=== PATIENT | female | born 1980 | race Two or more races ===

== ENCOUNTER 2017-06-10 00:54 | Emergency (ER) | payer OTHER ==
[2017-06-10 01:02] VITALS: RESP 18
[2017-06-10] MEDS ORDERED: NS 1,000 ML IV ONE (01:28)
[2017-06-10] MEDS ORDERED: ONDANSETRON 4 MG/2 ML VIAL IVP ONE (01:28)
[2017-06-10] MEDS ORDERED: FAMOTIDINE 20 MG/NACL 50 ML IV ONE (01:58)
--- NOTE | 2017-06-10 02:01 | EDPHY ---
H & P Stated Complaint: ABD PAIN, EPIGASTRIC PAIN, HX OF GASTRITIS Time Seen by Provider: 06/10/17 01:34 HPI/ROS: HPI The patient presents with abdominal pain which is epigastric, burning in nature , has been present for the last 1.5 days and is getting progressively worse. It now is radiating throughout her abdomen. It is associated with nausea and vomiting. She tried drinking water earlier today and was unable to. She is not sure what caused her pain, however her PPI prescription was changed to a different color pill and she was concerned that this is what caused her pain to start. She does not have any diarrhea, fever, dark or bloody stools. REVIEW OF SYSTEMS Constitutional: No fever, no chills. Eyes: No discharge. ENT: No sore throat. Cardiovascular: No chest pain, no palpitations. Respiratory: No cough, no shortness of breath. Gastrointestinal: Positive for abdominal pain, no vomiting. Genitourinary: No hematuria. Musculoskeletal: No back pain. Skin: No rashes. Neurological: No headache. PMHx: History of gastritis, followed at [facility] Soc Hx: Housed, no alcohol PHYSICAL General Appearance: Alert, no distress Eyes: Pupils equal and round no pallor or injection ENT, Mouth: Mucous membranes moist Respiratory: There are no retractions, lungs are clear to auscultation Cardiovascular: Regular rate and rhythm Gastrointestinal: Abdomen is soft and non-tender, no masses, bowel sounds normal Neurological: A&O, moves all extremities Skin: Warm and dry, no rashes Musculoskeletal: Neck is supple non tender Extremities: symmetrical, full range of motion Psychiatric: Patient is oriented X 3, there is no agitation Source: Patient Exam Limitations: No limitations - Personal History LMP (Females 10-55): 8-14 Days Ago Current Tetanus/Diphtheria Vaccine: Yes Current Tetanus Diphtheria and Acellular Pertussis (TDAP): Yes - Medical/Surgical History Hx Asthma: No Hx Chronic Respiratory Disease: No Hx Diabetes: No Hx Cardiac Disease: No Hx Renal Disease: No Hx Cirrhosis: No Hx Alcoholism: No Hx HIV/AIDS: No Hx Splenectomy or Spleen Trauma: No Other PMH: GASTRITIS, - Social History Smoking Status: Never smoked Constitutional: Initial Vital Signs Temperature (C) 37.1 C 06/10/17 00:57 Heart Rate 84 06/10/17 00:57 Respiratory Rate 18 06/10/17 00:57 Blood Pressure 112/87 H 06/10/17 00:57 O2 Sat (%) 100 06/10/17 00:57 O2 Delivery Mode Room Air Allergies/Adverse Reactions: No Known Allergies Allergy (Unverified 06/10/17 01:01) Home Medications: Medication Instructions Recorded Pantoprazole Sodium 40 mg PO 06/10/17 Medical Decision Making Differential Diagnosis: 36-year-old female with history of gastritis on PPI presents with 1.5 days of progressive epigastric abdominal pain, burning nature, now associated with nausea and vomiting. Differential diagnosis includes gastritis, pancreatitis, biliary colic. Plan for IV fluids, Zofran, famotidine, basic labs. Labs were checked and were unremarkable. Initial medications help somewhat, however the patient had ongoing vomiting. She was given a 2nd round of medications with complete resolution in her symptoms. I suspect she is suffering from gastritis. I have discussed this with her. She is feeling well enough to go home and will be discharged. - Data Points Laboratory Results: Laboratory Results 06/10/17 01:40 06/10/17 01:40 Medications Given: Discontinued Medications Sodium Chloride (Ns) 1,000 mls @ 0 mls/hr IV ONCE ONE PRN Reason: Wide Open Stop: 06/10/17 01:29 Last Admin: 06/10/17 01:39 Dose: 1,000 mls Famotidine/Sodium Chloride (Pepcid 20 Mg (Premix)) 50 mls @ 200 mls/hr IV EDNOW ONE Stop: 06/10/17 02:12 Last Admin: 06/10/17 02:37 Dose: 50 mls Ketorolac Tromethamine (Toradol) 15 mg IVP EDNOW ONE Stop: 06/10/17 03:10 Last Admin: 06/10/17 03:23 Dose: 15 mg Metoclopramide HCl (Reglan Injection) 10 mg IVP EDNOW ONE Stop: 06/10/17 03:10 Last Admin: 06/10/17 03:26 Dose: Not Given Ondansetron HCl (Zofran) 4 mg IVP EDNOW ONE Stop: 06/10/17 01:29 Last Admin: 06/10/17 01:39 Dose: 4 mg Ondansetron HCl (Zofran Odt 4 Mg Prepack#2) 1 btl TAKEHOME EDNOW ONE Stop: 06/10/17 04:36 Last Admin: 06/10/17 04:44 Dose: 1 btl Promethazine HCl (Phenergan) 12.5 mg IVP ONCE ONE Stop: 06/10/17 03:21 Last Admin: 06/10/17 03:23 Dose: 12.5 mg Departure - Departure Disposition: Home, Routine, Self-Care Clinical Impression: Epigastric abdominal pain, Gastritis Condition: Good Instructions: Gastritis (ED), Diet for Stomach Ulcers and Gastritis (ED) Additional Instructions: I recommend that you eat bland foods like rice, toast, bananas, applesauce until your feeling better. If you continue to have stomach pains, you can start taking Tums as well. Referrals: Miguel Ron MD [Primary Care Provider] - As per Instructions
[2017-06-10 02:05] LABS: PLATELET COUNT 273 10^3/uL (150-400)
[2017-06-10] MEDS ORDERED: KETOROLAC 15 MG/1 ML SDV IVP ONE (03:09)
[2017-06-10] MEDS ORDERED: METOCLOPRAMIDE 10 MG/2 ML VIAL IVP ONE (03:09)
[2017-06-10] MEDS ORDERED: PROMETHAZINE HCL 25 MG/ML INJ ONE (03:19)
[2017-06-10] MEDS ORDERED: PROMETHAZINE HCL 25 MG/ML INJ IVP ONE (03:20)
[2017-06-10] MEDS ORDERED: ONDANSETRON 4MG PREPACK#2 BTL TAKEHOME ONE (04:35)
[2017-06-10 04:53] VITALS: BP 114/64; PULSE 63; TEMP 98.2; O2SAT 95
== END 2017-06-10 04:55 | disposition home or self-care (01) ==
LOC: EDBD 00:54
DX: K29.70 Gastritis, unspecified, without bleeding (principal); R11.2 Nausea with vomiting, unspecified
CPT/HCPCS: 96365; J1885; J2405; J2550